=== PATIENT | male | born 1985 | race Caucasian/White ===

== ENCOUNTER 2018-09-22 07:29 | Emergency (ER) | payer OTHER ==
[2018-09-22 07:39] VITALS: BP 149/62; PULSE 120; TEMP 98.4; BMI 45.8
--- NOTE | 2018-09-22 08:32 | PDOC ---
History of Present Illness - General Chief Complaint: Ear Problem Stated Complaint: EAR ACHE Time Seen by Provider: 09/22/18 08:08 History Source: Patient Exam Limitations: No Limitations - History of Present Illness Initial Comments: 09/22/18 08:32 33-year-old male presents to ED with complaints of foreign body to his left ear. Patient states mother told him if he had an earache after swimming to place a piece of garlic in his ear which he did last night but forgot about it and now unable to remove it. Patient denies pain to the ear 09/22/18 08:33 Timing/Duration: 24 hours Severity: mild Associated Symptoms: reports: denies symptoms Past History - Travel Traveled outside of the country in the last 30 days: No Close contact w/someone who was outside of country & ill: No - Past Medical History Allergies/Adverse Reactions: Allergies Allergy/AdvReac Type Severity Reaction Status Date / Time No Known Allergies Allergy Verified 09/22/18 07:39 Home Medications: Ambulatory Orders NK [No Known Home Medication] 12/31/15 COPD: No Psychiatric Problems: Yes (bipolar) - Immunization History Immunization Up to Date: Yes - Suicide/Smoking/Psychosocial Hx Smoking History: Never smoked Number of Cigarettes Smoked Daily: 1 Information on smoking cessation initiated: No Hx Alcohol Use: No Drug/Substance Use Hx: No Patient Lives Alone: No Lives with/in: parents Review of Systems - Review of Systems Able to Perform ROS?: Yes Constitutional: No: Symptoms Reported HEENTM: Yes: Ear Pain Respiratory: No: Symptoms reported Integumentary: No: Symptoms Reported Neurological: No: Headache, Dizziness *Physical Exam - Vital Signs Last Vital Signs Temp Pulse Resp BP Pulse Ox 98.4 F 120 H 18 149/62 97 09/22/18 07:36 09/22/18 07:36 09/22/18 07:36 09/22/18 07:36 09/22/18 07:36 - Physical Exam General Appearance: Yes: Nourished, Appropriately Dressed. No: Apparent Distress HEENT: negative: TMs Normal (noted whitish semi-firm object occluding left TM) Integumentary: positive: Normal Color, Warm, Moist Neurologic: positive: Motor Strength 5/5 ( ambulatory) Medical Decision Making - Medical Decision Making 09/22/18 08:34 Chief complaint: Patient with foreign body to left ear canal patient placed colic in his ear last night secondary to ear pain after swimming 2 days ago. Exam: Noted whitish semi-firm object occluding left TM and occupying space of ear canal Plan: Utilizing alligator forceps was able to remove a clove of garlic without difficulty. Left TM intact no ear canal irritation or erythema Patient to be discharged home with supportive care instructions *DC/Admit/Observation/Transfer Diagnosis at time of Disposition: Foreign body in ear - Discharge Dispostion Disposition: HOME Condition at time of disposition: Improved - Referrals Referrals: Lj Ramires MD [Primary Care Provider] - - Patient Instructions Printed Discharge Instructions: DI for Removal of Foreign Body From Ear Additional Instructions: Do not place anything in your ears. Do not place any earbuds your ears for the next 2-3 days to allow area to completely heal and avoid irritation - Post Discharge Activity
== END 2018-09-22 11:14 | disposition home or self-care (01) ==
LOC: JER 07:29
PROC: 09C47ZZ Extirpation of Matter from Left External Auditory Canal, Via Natural or Artificial Opening (ICD-10-PCS; principal; 2018-09-22)
DX: T16.2XXA Foreign body in left ear, initial encounter (principal); X58.XXXA Exposure to other specified factors, initial encounter; Y93.89 Activity, other specified; Y92.038 Other place in apartment as the place of occurrence of the external cause; Y99.8 Other external cause status
CPT/HCPCS: 69209-50; 99281-25

== ENCOUNTER 2020-06-30 04:35 | Day surgery (SDC) | payer OTHER ==
[2020-06-28 17:57] VITALS: BMI 44.3
[2020-06-30] MEDS ORDERED: LIDOCAINE HCL 1%, 10 MG/ML (20ML VIAL) ONE (09:47)
[2020-06-30] MEDS ORDERED: SODIUM CHLORIDE 0.9% P/F 10 ML VIAL IJ ONE (09:49)
[2020-06-30] MEDS ORDERED: MIDAZOLAM HCL 2 MG/2 ML SINGLE DOSE VIAL ONE (11:49)
[2020-06-30] MEDS ORDERED: PROPOFOL 20 ML ONE ×2 (11:49→12:15)
[2020-06-30] MEDS ORDERED: ceFAZolin SODIUM 1 GM VIAL ONE (12:13)
[2020-06-30] MEDS ORDERED: BACITRACIN 50,000 UNITS VIAL TP ONE (12:22)
[2020-06-30] MEDS ORDERED: oxyCODONE HCL 5 MG TABLET PO PRN (12:44)
[2020-06-30] MEDS ORDERED: DEXTROSE 5%-0.45% SALINE 1,000 ML IV SCH (12:45)
[2020-06-30 13:38] VITALS: PULSE 84; TEMP 96.6
[2020-06-30 14:13] VITALS: BP 115/72
== END 2020-06-30 14:19 | disposition home or self-care (01) ==
LOC: JASU-SURG 04:35
PROVIDERS: ATTEND Urology
PROC: 01PY0MZ Removal of Neurostimulator Lead from Peripheral Nerve, Open Approach (ICD-10-PCS; principal; 2020-06-30 11:30)
DX: T85.890A Other specified complication of nervous system prosthetic devices, implants and grafts, initial encounter (principal); R35.0 Frequency of micturition; E11.9 Type 2 diabetes mellitus without complications
CPT/HCPCS: 76000-TC-FY; 88300-TC; 94760

== ENCOUNTER 2020-10-19 15:33 | Emergency (ER) | payer OTHER ==
[2020-10-19 15:43] VITALS: BP 119/81; PULSE 97; TEMP 98.2; BMI 43.5
[2020-10-19] MEDS ORDERED: ASPIRIN 81 MG CHEWABLE TABLETS PO ONE (16:42)
[2020-10-19] MEDS ORDERED: ASPIRIN 81 MG CHEWABLE TABLETS ONE (17:54)
[2020-10-19 17:59] LABS: EOS % 0.9 % (0-4.5); HEMATOCRIT 40.2 % (35.4-49); HEMOGLOBIN 13.7 GM/dL (11.7-16.9); LYMPH % 39.3 % (8-40); MCH 29.8 pg (25.7-33.7); MCHC 34.1 g/dl (32.0-35.9); MEAN CELL VOLUME 87.5 fl (80-96); MEAN PLT VOLUME 9.9 fl (7.5-11.1); MONO % 8.9 % (3.8-10.2); NEUT % 49.9 % (42.8-82.8); PLATELET COUNT 158 10^3/uL (134-434); RDW 15.4 % (11.9-15.9)
[2020-10-19 18:09] LABS: INR 0.97 (0.83-1.09); PROTHROMBIN TIME (PATIENT) 11.7 SEC (9.7-13.0)
[2020-10-19 18:12] LABS: ACTIVATED PTT 39.5 SECONDS (25.2-36.5)
[2020-10-19 18:17] LABS: CHLORIDE 109 mmol/L (98-107); SODIUM 141 mmol/L (136-145)
[2020-10-19 18:19] LABS: CALCIUM 8.8 mg/dL (8.5-10.1); GLUCOSE,RANDOM 82 mg/dL (74-106)
[2020-10-19 18:20] LABS: ALBUMIN 3.8 g/dl (3.4-5.0); ANION GAP 10 MMOL/L (8-16); BLOOD UREA NITROGEN 8.3 mg/dL (7-18); CO2 22 mmol/L (21-32); MAGNESIUM 2.1 mg/dL (1.8-2.4)
[2020-10-19 18:23] LABS: CREATININE 0.9 mg/dL (0.55-1.3); SGOT/AST 40 U/L (15-37)
[2020-10-19 18:24] LABS: BILIRUBIN,TOTAL 0.6 mg/dL (0.2-1)
[2020-10-19 18:25] LABS: TOT PROT 7.5 g/dl (6.4-8.2)
[2020-10-19 18:30] LABS: EPI CELLS 11 /uL (0-25.1); HYALINE CASTS 6 /uL (0-3.1); PH,URINE 5.5 (5.0-8.0); URINE APPEARANCE CLEAR; URINE BACTERIA 7 /uL (0-1359); URINE BILIRUBIN 2+ (NEGATIVE); URINE COLOR DK YELLOW; URINE GLUCOSE (UA) NEGATIVE (NEGATIVE); URINE KETONE 2+ (NEGATIVE); URINE LEUK ESTERASE TRACE (NEGATIVE); URINE NITRITE NEGATIVE (NEGATIVE); URINE PROTEIN 1+ (NEGATIVE); URINE RBC 18 /uL (0-23.9); URINE WBC 23 /uL (0-25.8)
[2020-10-19 18:36] LABS: ALK PHOS 81 U/L (45-117); SGPT/ALT 58 U/L (13-61)
== END 2020-10-19 19:00 | disposition home or self-care (01) ==
LOC: JER 15:33
DX: R07.9 Chest pain, unspecified (principal)
CPT/HCPCS: 36415; 71046-TC-FY; 80053; 81003; 82550; 83735; 84484; 85025; 85379; 85610; 85730; 93005; 93010; 99285-25; C9803; U0003; U0005

== ENCOUNTER 2021-09-02 20:00 | Emergency (ER) | payer OTHER ==
[2021-09-02 20:09] VITALS: BP 112/75; PULSE 135; TEMP 99; BMI 39.9
[2021-09-02 21:37] LABS: EPI CELLS 1 /uL (0-25.1); HYALINE CASTS 5 /uL (0-3.1); PH,URINE 7.5 (5.0-8.0); URINE APPEARANCE CLOUDY; URINE BACTERIA 24 /uL (0-1359); URINE BILIRUBIN NEGATIVE (NEGATIVE); URINE COLOR RED; URINE GLUCOSE (UA) NEGATIVE (NEGATIVE); URINE KETONE NEGATIVE (NEGATIVE); URINE LEUK ESTERASE 2+ (NEGATIVE); URINE NITRITE NEGATIVE (NEGATIVE); URINE PROTEIN 2+ (NEGATIVE); URINE RBC 8439 /uL (0-23.9); URINE WBC 565 /uL (0-25.8)
[2021-09-02] MEDS ORDERED: PHENAZOPYRIDINE HCL 100 MG TABLET (FP) ONE (22:53)
[2021-09-02] MEDS ORDERED: CEPHALEXIN MONOHYDRATE 500 MG CAPSULE (UD) ONE (22:53)
== END 2021-09-02 23:20 | disposition home or self-care (01) ==
LOC: JER 20:00
DX: N30.00 Acute cystitis without hematuria (principal)
CPT/HCPCS: 81003; 87086; 99283-25